=== PATIENT | female | born 2000 | race Caucasian/White ===

== ENCOUNTER 2022-02-06 00:21 | Emergency (ER) | payer MEDICAID ==
[~2022-02-06] VITALS: Ht 154.9 cm; Wt 47.6 kg
[2022-02-06 00:30] VITALS: BP_SYST 115
--- NOTE | 2022-02-06 00:30 | NUR ---
Dr. Funez present in room.
--- NOTE | 2022-02-06 00:30 | NUR ---
Patient ambulatory to bed 7 for evaluation and treatment
--- NOTE | 2022-02-06 00:35 | NUR ---
First contact. Pt in stretcher. Male visitor present in room.
[2022-02-06 02:00] VITALS: BP_SYST 113
[2022-02-06] MEDS ORDERED: ONDANSETRON 4 MG ODT TAB PO ONE (02:00)
[2022-02-06] MEDS ORDERED: KETOROLAC TROMETHAMINE 60 MG/2 ML VIAL IM ONE (02:00)
[2022-02-06] MEDS ORDERED: NAPR-690 PO (02:01)
[2022-02-06] MEDS ORDERED: ONDA-8 TL (02:01)
--- NOTE | 2022-02-06 02:16 | NUR ---
Patient given written and verbal discharge instructions and verbalizes understanding. ER MD discussed with patient the results and treatment provided. Patient in stable condition. ID arm band removed. Rx of zofran and naproxen given. Patient educated on pain management and to follow up with PMD.Opportunity for questions provided and answered. Medication side effect fact sheet provided. Notified patient that she will be contact should her covid and/or flu test come back positive.
== END 2022-02-06 02:16 | disposition home or self-care (01) ==
LOC: SED 00:21
DX: G89.29 Other chronic pain (principal); R10.30 Lower abdominal pain, unspecified; Z79.899 Other long term (current) drug therapy
CPT/HCPCS: 74018; 81002; 81025; 82962; 96372; 99284; J1885; Q0162; 36415

== ENCOUNTER 2022-02-06 14:26 | Emergency (ER) | payer MEDICAID ==
[~2022-02-06] VITALS: Ht 157.5 cm; Wt 52.6 kg
[~2022-02-06 14:26] MED LIST: NAPR-690 PO; ONDA-8 TL
[2022-02-06 14:30] VITALS: BP_SYST 113
[2022-02-06] MEDS ORDERED: NACL 0.9% 1,000 ML IV ONE (14:45)
--- NOTE | 2022-02-06 15:00 | NUR ---
RECEIVED PATIENT FROM HOME WITH NONRESOLVING ABDOMINAL PAIN, SEEN HERE EARLIER THIS MORNING, PT IS AAOx3, NAD, VSS, TO BE FURTHER ASSESSED BY ED MD FOR PLAN OF CARE WITH DISPOSITION.
[2022-02-06 15:35] LABS: BILIRUBIN,URINE NEGATIVE (NEGATIVE); BLOOD, URINE 2+ (NEGATIVE); CLARITY/URINE CLEAR (CLEAR); COLOR,URINE YELLOW (YELLOW); GLUCOSE,URINE NEGATIVE (NEGATIVE); KETONES,URINE 1+ (NEGATIVE); LEUKOCYTE ESTERASE ,URINE NEGATIVE (NEGATIVE); NITRITE, URINE NEGATIVE (NEGATIVE); PROTEIN URINE TRACE (NEGATIVE); UROBILINOGEN,URINE 0.2 (0.2-1.0)
[2022-02-06 15:39] LABS: BASOPHILS % (AUTO) 0.1 % (0.0-2.0); HEMOGLOBIN 15.6 g/dL (12.0-16.0); LYMPHOCYTES # (AUTO) 0.8 K/uL (1.0-5.5); LYMPHOCYTES % (AUTO) 6.1 % (20.5-51.5); MEAN CORPUSCULAR HEMOGLOBIN 31 pg (27-31); MEAN CORPUSCULAR HGB CONC 35 % (32-36); MEAN CORPUSCULAR VOLUME 90 fL (79.0-98.0); MONOCYTES % (AUTO) 7.8 % (1.7-9.3); NEUTROPHILS # (AUTO) 10.6 K/uL (1.8-7.7); PLATELET COUNT (AUTO) 249 K/uL (130-430); RED BLOOD CELL COUNT(AUTO) 5.01 MIL/uL (4.2-6.2); RED CELL DISTRIBUTION WIDTH 11.9 % (9.0-15.0); WHITE BLOOD COUNT (AUTO) 12.4 K/uL (4.8-10.8)
[2022-02-06 15:44] LABS: CALCIUM 9.1 mg/dL (8.4-11.0); CREATININE 0.82 mg/dL (0.55-1.30); POTASSIUM 3.5 mmol/L (3.5-5.1)
[2022-02-06 15:50] LABS: ALBUMIN 3.6 g/dL (3.4-4.8); TOTAL BILIRUBIN 0.5 mg/dL (0.0-1.0)
[2022-02-06 16:07] LABS: BACTERIA,URINE FEW /HPF (None Seen); WBC,URINE 0-3 /HPF (0-3)
[2022-02-06 16:34] LABS: BARBITURATE, URINE NEGATIVE (NEG <=200); BENZODIAZEPINE, URINE NEGATIVE (NEG <=150); CANNABINOID, URINE NEGATIVE (NEG <=50); COCAINE, URINE NEGATIVE (NEG <=150); METHAMPHETAMINES SCREEN,URINE NEGATIVE (NEG <=500); OPIATE, URINE NEGATIVE (NEG <=100); PHENCYCLIDINE SCREEN,URINE NEGATIVE (NEG <=25); UR TRICYCLIC ANTIDEPRESSANTS NEGATIVE (NEG <=300); URINE AMPHETAMINE NEGATIVE (NEG <=500); URINE METHADONE NEGATIVE (NEG <=200); URINE OXYCODONE SCREEN NEGATIVE (NEG <=100); URINE PROPOXYPHENE SCREEN NEGATIVE (NEG <=300)
[2022-02-06 17:30] VITALS: BP_SYST 101
--- NOTE | 2022-02-06 17:34 | NUR ---
PT RETURNED FROM [facility]
--- NOTE | 2022-02-06 18:54 | NUR ---
Patient given written and verbal discharge instructions and verbalizes understanding. ER MD discussed with patient the results and treatment provided. Patient in stable condition. ID arm band removed. IV catheter removed intact and dressing applied, no active bleeding.
== END 2022-02-06 18:53 | disposition home or self-care (01) ==
LOC: SED 14:26
DX: N83.202 Unspecified ovarian cyst, left side (principal); N83.201 Unspecified ovarian cyst, right side; Z79.899 Other long term (current) drug therapy
CPT/HCPCS: 36415; 74176; 76376; 76856; 80053; 80307; 81000; 85025; 96360; 96361; 99284; J7030

== ENCOUNTER 2022-02-16 21:41 | Emergency (ER) | payer MEDICAID ==
[~2022-02-16] VITALS: Ht 154.9 cm; Wt 47.6 kg
[2022-02-16 21:50] VITALS: BP_SYST 110
[2022-02-16] MEDS ORDERED: NAPR-690 PO (22:32)
[2022-02-16] MEDS ORDERED: ONDA-8 TL (22:32)
[2022-02-16] MEDS ORDERED: KETO10TA2 PO (22:44)
[2022-02-16 22:56] VITALS: BP_SYST 105
== END 2022-02-16 22:56 | disposition home or self-care (01) ==
LOC: SED 21:41
DX: R10.84 Generalized abdominal pain (principal); Z79.899 Other long term (current) drug therapy
CPT/HCPCS: 99283

== ENCOUNTER 2022-09-16 17:22 | Emergency (ER) | payer MEDICAID ==
[~2022-09-16] VITALS: Ht 157.5 cm; Wt 49.9 kg
[~2022-09-16 17:22] MED LIST changes: +KETO10TA2 PO; -NAPR-690 PO
[2022-09-16 17:59] VITALS: BP_SYST 108
--- NOTE | 2022-09-16 18:03 | NUR ---
Patient to ER CHAIR for evaluation. Side rails up. Report given to NALLELY ARIZA
--- NOTE | 2022-09-16 18:09 | NUR ---
PT BIBS, STATED HER PRESCRIPTION OF LEXOPRO RAN OUT, SHE STATED HER PHYSICIAN'S OFFICE DOES NOT ANSWER HER CALL. PT WOULD LIKE TO HAVE NEW PRESCRIPTION FILLED. PT DENIES SUICIDAL IDEATION AT THIS TIME. PT IS AAOX4. ON R/A. DENIES N/V/D/C. SKIN WARM, INTACT, NO EDEMA. DENIES PAIN.
--- NOTE | 2022-09-16 18:40 | NUR ---
DR. TORRES AT BEDSIDE TO ASSESS PT.
[2022-09-16] MEDS ORDERED: ESCI10TA PO (18:42)
--- NOTE | 2022-09-16 19:10 | NUR ---
PT ENDORSED TO NALLELY PETERS. ALL QUESTIONS AND CONCERNS ADDRESSED.
[2022-09-16 19:11] VITALS: BP_SYST 108
--- NOTE | 2022-09-16 19:11 | NUR ---
Patient given written and verbal discharge instructions and verbalizes understanding. ER MD discussed with patient the results and treatment provided. Patient in stable condition. ID arm band removed. Rx of LEXAPRO given. Patient educated on pain management and to follow up with PMD. Pain Scale 0/10 Opportunity for questions provided and answered. Medication side effect fact sheet provided.
== END 2022-09-16 19:11 | disposition home or self-care (01) ==
LOC: SED 17:22
DX: Z76.0 Encounter for issue of repeat prescription (principal); F41.9 Anxiety disorder, unspecified; F32.1 Major depressive disorder, single episode, moderate; Z79.899 Other long term (current) drug therapy
CPT/HCPCS: 99281

== ENCOUNTER 2022-11-10 19:59 | Emergency (ER) | payer MEDICAID ==
[~2022-11-10] VITALS: Ht 157.5 cm; Wt 52.6 kg
[~2022-11-10 19:59] MED LIST changes: +ESCI10TA PO
[2022-11-10 20:28] VITALS: BP_SYST 114
[2022-11-10] MEDS ORDERED: ACETAMINOPHEN 325 MG TABLET PO ONE (20:30)
--- NOTE | 2022-11-10 22:00 | NUR ---
COVID AND FLU SAMPLE COLLECTED AND SENT TO LAB.
--- NOTE | 2022-11-10 23:00 | NUR ---
DR. DEL RIO WITH PATIENT IN TENT FOR MSE.
[2022-11-10] MEDS ORDERED: AMOX500C2 PO (23:07)
[2022-11-10] MEDS ORDERED: DEXAMETHASONE SOD PHOSPHATE 4 MG/ML VIAL PO ONE (23:15)
[2022-11-10 23:27] VITALS: BP_SYST 106
--- NOTE | 2022-11-10 23:27 | NUR ---
Patient given written and verbal discharge instructions and verbalizes understanding. ER DR. DEL RIO discussed with patient the results and treatment provided. Patient in stable condition. ID arm band removed. Rx of AMOXICILLIN given. Patient educated on pain management and to follow up with PMD. Pain Scale 0. Opportunity for questions provided and answered. Medication side effect fact sheet provided.
[2022-11-10] MEDS ORDERED: LORazepam 2 MG/ML VIAL ONE (23:54)
== END 2022-11-10 23:27 | disposition home or self-care (01) ==
LOC: SED 19:59
DX: J02.9 Acute pharyngitis, unspecified (principal); R05.9 Cough, unspecified; M79.10 Myalgia, unspecified site; Z79.899 Other long term (current) drug therapy; Z20.822 Contact with and (suspected) exposure to COVID-19
CPT/HCPCS: 99283; 87426; 36415; 87804 ×2; J1100; J2060

== ENCOUNTER 2023-02-02 17:29 | Emergency (ER) | payer MEDICAID ==
[~2023-02-02] VITALS: Ht 157.5 cm; Wt 51.7 kg
[~2023-02-02 17:29] MED LIST changes: +AMOX500C2 PO
[2023-02-02 17:30] VITALS: BP_SYST 113
--- NOTE | 2023-02-02 17:30 | NUR ---
Patient triaged and placed in waiting room. VSS and patient appears in no acute distress at this time. Accompanied by SELF, awaiting available bed, and MD notified of need for MSE.
--- NOTE | 2023-02-02 17:45 | NUR ---
PT STATES THAT SHE IS GETTING A SORE THROAT SINCE LAST NIGHT, STATES THAT THIS HAPPENED BEFORE AND THE DR GAVE HER ABX. SHE FEELS THIS IS THE SAME
--- NOTE | 2023-02-02 19:03 | NUR ---
COVID, FLU, AND STREP SWABBED AND SENT TO LAB
--- NOTE | 2023-02-02 19:04 | NUR ---
DR TORRES OUT TO TRIAGE ROOM FOR EVALUATION
[2023-02-02] MEDS ORDERED: DEXAMETHASONE SOD PHOSPHATE 10 MG/ML VIAL PO ONE (19:15)
--- NOTE | 2023-02-02 19:25 | NUR ---
Patient to [facility] for evaluation. Side rails up. Report given to WALKER BROWNING.
--- NOTE | 2023-02-02 19:30 | NUR ---
Received report from NALLELY Broussard; assuming care of patient at this time.
[2023-02-02 19:42] LABS: STREPTOCOCCUS A SCREEN (RAPID) NEGATIVE (NEGATIVE)
[2023-02-02] MEDS ORDERED: IBUP-1969 PO (19:55)
[2023-02-02] MEDS ORDERED: KETOROLAC TROMETHAMINE 15 MG VIAL IM ONE (20:00)
[2023-02-02 20:21] VITALS: BP_SYST 111
--- NOTE | 2023-02-02 20:21 | NUR ---
Patient given written and verbal discharge instructions and verbalizes understanding. ER MD discussed with patient the results and treatment provided. Patient in stable condition. ID arm band removed. Rx of Ibuprofen given. Patient educated on pain management and to follow up with PMD. Pain Scale 3/10. Opportunity for questions provided and answered. Medication side effect fact sheet provided. Patient in stable condition upon discharge. Nad noted at this time.
== END 2023-02-02 20:21 | disposition home or self-care (01) ==
LOC: SED 17:29
DX: J02.9 Acute pharyngitis, unspecified (principal); M79.10 Myalgia, unspecified site; Z79.899 Other long term (current) drug therapy; Z20.822 Contact with and (suspected) exposure to COVID-19
CPT/HCPCS: 99283; 87426; 86403; 36415; 81025; 96372; 87081; 87804 ×2; J1100; J1885

== ENCOUNTER 2023-04-14 22:36 | Emergency (ER) | payer MEDICAID ==
[~2023-04-14] VITALS: Ht 157.5 cm; Wt 49.9 kg
[~2023-04-14 22:36] MED LIST changes: +IBUP-1969 PO
[2023-04-14 23:08] VITALS: BP_SYST 121
--- NOTE | 2023-04-14 23:11 | NUR ---
PATIENT BROUGHT IN COMPLAINING OF NAUSEA, DIARRHEA, GENERALIZED WEAKNESS, AND POOR APPETITE SINCE MONDAY. PATIENT REPORTS OVER THE WEEKEND SHE HAD BEEN BINGE DRINKING BUT ALSO MAY OF HAD SOME FOOD POISONING. HX OF DEPRESSION AND ANXIETY. DENIES PAIN. VSS. MAZA NOTIFIED FOR MSE.
--- NOTE | 2023-04-14 23:11 | NUR ---
Patient to ER bed 04 to gown for evaluation. Side rails up. Report given to NALLELY CRUZ
[2023-04-15] MEDS ORDERED: NACL 0.9% 1,000 ML IV ONE
[2023-04-15] MEDS ORDERED: ONDANSETRON HCL 4 MG/2 ML VIAL IVP ONE
[2023-04-15] MEDS ORDERED: FAMOTIDINE PF 20 MG/2 ML VIAL IVP ONE
[2023-04-15] MEDS ORDERED: DICYCLOMINE HCL 10 MG/5 ML SOLUTION PO ONE
--- NOTE | 2023-04-15 | NUR ---
ER at bedside examining patient.
[2023-04-15 00:25] LABS: BILIRUBIN,URINE NEGATIVE (NEGATIVE); BLOOD, URINE NEGATIVE (NEGATIVE); CLARITY/URINE CLEAR (CLEAR); COLOR,URINE YELLOW (YELLOW); GLUCOSE,URINE NEGATIVE (NEGATIVE); KETONES,URINE 2+ (NEGATIVE); LEUKOCYTE ESTERASE ,URINE TRACE (NEGATIVE); NITRITE, URINE NEGATIVE (NEGATIVE); PROTEIN URINE NEGATIVE (NEGATIVE); UROBILINOGEN,URINE 0.2 (0.2-1.0)
[2023-04-15 00:44] LABS: BACTERIA,URINE RARE /HPF (None Seen); RBC,URINE 0-3 /HPF (0-3); WBC,URINE 0-3 /HPF (0-3)
[2023-04-15 00:49] LABS: BASOPHILS % (AUTO) 0.3 % (0.0-2.0); EOSINOPHILS % (AUTO) 0.2 % (0.0-4.0); HEMATOCRIT 38.7 % (36-48); HEMOGLOBIN 13.2 g/dL (12.0-16.0); LYMPHOCYTES # (AUTO) 1.5 K/uL (1.0-5.5); LYMPHOCYTES % (AUTO) 12.7 % (20.5-51.5); MEAN CORPUSCULAR HEMOGLOBIN 31 pg (27-31); MEAN CORPUSCULAR HGB CONC 34 % (32-36); MEAN CORPUSCULAR VOLUME 90 fL (79.0-98.0); MONOCYTES # (AUTO) 0.6 K/uL (0.0-1.0); MONOCYTES % (AUTO) 5.2 % (1.7-9.3); NEUTROPHILS # (AUTO) 9.7 K/uL (1.8-7.7); NEUTROPHILS % (AUTO) 81.6 % (40.0-70.0); PLATELET COUNT (AUTO) 308 K/uL (130-430); RED BLOOD CELL COUNT(AUTO) 4.29 MIL/uL (4.2-6.2); RED CELL DISTRIBUTION WIDTH 12.5 % (9.0-15.0); WHITE BLOOD COUNT (AUTO) 11.8 K/uL (4.8-10.8)
[2023-04-15 01:02] LABS: CALCIUM 7.7 mg/dL (8.4-11.0); CREATININE 0.68 mg/dL (0.55-1.30)
[2023-04-15 01:07] LABS: ALBUMIN 3.3 g/dL (3.4-4.8); TOTAL BILIRUBIN 0.4 mg/dL (0.0-1.0)
[2023-04-15] MEDS ORDERED: ONDA-8 TL (01:50)
[2023-04-15] MEDS ORDERED: LOPE2CAP PO (01:50)
[2023-04-15] MEDS ORDERED: DICY10CA13 PO (01:50)
[2023-04-15] MEDS ORDERED: FAMO20TA8 PO (01:50)
[2023-04-15 02:14] VITALS: BP_SYST 121
--- NOTE | 2023-04-15 02:17 | NUR ---
Patient given written and verbal discharge instructions and verbalizes understanding. ER MD discussed with patient the results and treatment provided. Patient in stable condition. ID arm band removed. IV catheter removed intact and dressing applied, no active bleeding. Rx of DICYCLOMINE, PEPCID, IMODIUM, ZOFRAN given. Patient educated on NAUSEA AND VOMITING, DIARRHEA, AND ABDOMINAL pain management and to follow up with PMD. Pain Scale . Opportunity for questions provided and answered. Medication side effect fact sheet provided.
== END 2023-04-15 02:14 | disposition home or self-care (01) ==
LOC: SED 22:36
DX: R10.9 Unspecified abdominal pain (principal); R19.7 Diarrhea, unspecified; R11.0 Nausea; Z79.899 Other long term (current) drug therapy
CPT/HCPCS: 99284; 80053; 81000; 83690; 85025; 36415; 81025; 96374; 96361; 96375; J3490; J2405; J7030